=== PATIENT | female | born 2000 | race Caucasian/White ===

== ENCOUNTER 2025-03-05 10:11 | Observation (INO) | payer OTHER, SELFPAY ==
--- NOTE | 2025-03-05 10:22 | DI.US.S_ITS ---
PROCEDURE: US OB LIMITED INDICATIONS: high blood pressure OUTSIDE/PRIOR DATING DATA: Last menstrual period (LMP): 06/30/2024. LMP-based estimated date of delivery (HARPER): 04/06/2025. First dating scan (date and location): 09/09/2024. Estimated date of delivery (HARPER) from first dating scan: 04/06/2024. TECHNIQUE: Real-time scanning was performed of the fetus, with image documentation and biometric measurements. Endovaginal scanning: Not done. COMPARISON: [facility] Ultrasound, US, US OB > 14 WEEKS COMPLETE ANATOMY, 11/22/2024, 10:18. [facility], US, US OB < 14 WEEKS, 09/09/2024, 16:40. [facility], US, US OB LIMITED, 12/10/2024, 7:05. FINDINGS: General: A single live intrauterine gestation is present. Presentation: Vertex. Placenta: Placental position is posterior, without previa. Amniotic fluid index: 18.3 cm, normal range is 5-24 cm. Single deepest vertical pocket is 6.8 cm. heart rate: 163 beats per minute. Maternal cervical canal: Not evaluated biometrics: Biparietal diameter: 8.7 cm equals 35 weeks 0 days Head circumference: 30.5 cm equals 33 weeks 6 days Abdominal circumference: 30.6 cm equals 34 weeks 4 days Femur length: 6.4 cm equals 32 weeks 6 days Clinically estimated gestational age: 35 weeks 3 days Composite gestational age from present scan: 34 weeks 1 day Estimated weight and percentile: 2342 g, 16th percentile Other: The umbilical artery Doppler ratios measure 2.5, 2.4, and 2.1 IMPRESSION: No acute abnormality is identified. The head circumference and femur length are less than the 5th percentile for gestational age. Normal LIBBY. Umbilical cord Doppler ratios within normal limits. We strive to produce accurate, complete, and clear reports of imaging services. To assist us in improving patient care, this report was composed using standard report templates and voice recognition software. Therefore, it may contain abnormal punctuation, insertions and/or omissions. Occasional wrong-word or sound-alike substitutions may occur. Though we review the report and make efforts to correct it, we do recommend that the report be read carefully in proper context to recognize any text inaccuracies. Dictated by: Ger Walker M.D. on 03/05/2025 at 11:44 Approved by: Ger Walker M.D. on 03/05/2025 at 11:48
--- NOTE | 2025-03-05 10:58 | P.TNLD_ITS ---
Visit Information Visit Information Date of evaluation: 03/05/25 Primary OB Provider: Caprice Abraham On-call OB Provider: Caprice Abraham Reason for Evaluation: Yes other Comments/Additional reasons for admission: 24YO @ [id number] by LMP concordant with 10wks US referred from clinic for evaluation of elevated BP and headache. Seen in clinic this morning for concern for elevated home BsP. Has been having some headaches off and on since 02/22/25. They feel like her typical headaches across the front of her head and have resolved with normal interventions: time and/or Tylenol. Has been having mild GI upset with loose stools x 5 days. Feeling irregular, mild cramping in the evenings in the last few days. Lots of FM. She is experiencing pinpoint/localized RUQ pain that she feels extending into her back. No vision changes or increased edema. 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 Anxiety Depression Surgical History (Updated 03/05/25 @ 11:12 by Caprice Abraham CNM) History of breast lump/mass excision Family History (Updated 03/05/25 @ 11:13 by Caprice Abraham CNM) Mother Diabetes mellitus Depression Cancer Father Diabetes mellitus Exam Vital Signs (past 8 hours): see above Presentation: vertex Neuro General: patient alert, patient awake and patient oriented x3 Cognition: normal cognition Speech: speech normal DTR's: Rt Patellar: 1+ and Lt Patellar: 2+ Objective Imaging OB US >14wks Follow-up Growth: Radiologist's impression: COMPARISON: [facility] Ultrasound, US, US OB > 14 WEEKS COMPLETE ANATOMY, 11/22/2024, 10:18. [facility], US, US OB < 14 WEEKS, 09/09/2024, 16:40. [facility], US, US OB LIMITED, 12/10/2024, 7:05. FINDINGS: General: A single live intrauterine gestation is present. Presentation: Vertex. Placenta: Placental position is posterior, without previa. Amniotic fluid index: 18.3 cm, normal range is 5-24 cm. Single deepest vertical pocket is 6.8 cm. heart rate: 163 beats per minute. Maternal cervical canal: Not evaluated biometrics: Biparietal diameter: 8.7 cm equals 35 weeks 0 days Head circumference: 30.5 cm equals 33 weeks 6 days Abdominal circumference: 30.6 cm equals 34 weeks 4 days Femur length: 6.4 cm equals 32 weeks 6 days Clinically estimated gestational age: 35 weeks 3 days Composite gestational age from present scan: 34 weeks 1 day Estimated weight and percentile: 2342 g, 16th percentile Other: The umbilical artery Doppler ratios measure 2.5, 2.4, and 2.1 IMPRESSION: No acute abnormality is identified. The head circumference and femur length are less than the 5th percentile for gestational age. Normal LIBBY. Umbilical cord Doppler ratios within normal limits Labs 03/05/25 10:45 03/05/25 10:45 Evaluation Evaluation Baseline heart rate: 150 Variability: Moderate (11-25) monitor accelerations: Present Monitor Decelerations: Absent Contraction Frequency (minutes): 2 Uterine Contraction Intensity: Mild Category of Tracing: Reactive (LINE REPAIRER TOWER) Cervical dilation (cm): 0 Cervical effacement (%): 50 station: -3 Diagnosis, Plan/Disposition Final Diagnosis (1) Elevated blood pressure reading without diagnosis of hypertension: Status: Acute Plan/Disposition Plan: Discharge to home with routine precautions. Continue daily home BPs. Follow-up in clinic 03/09/25. OB Disposition: home
[2025-03-05 11:04] LABS: Add Manual Diff / Slide Review NO; Basophils Absolute Auto 0 /uL (0-100); Basophils Percent Auto 0.3 % (0-2); Eosinophils Absolute Auto 0 /uL (0-450); Eosinophils Percent Auto 0.4 % (2-4); Hematocrit 34.5 % (36-46); Hemoglobin 11.8 g/dL (12.0-16.0); Lymphocytes Absolute Auto 1700 /uL (1100-4500); Lymphocytes Percent Auto 14.6 % (25-40); Mean Corpuscular Hemoglobin 27.8 PG (26-34); Mean Corpuscular Volume 81.7 fL (80-100); Monocytes Absolute Auto 700 /uL (0-900); Neutrophils Absolute Auto 9000 /uL (1500-7000); Neutrophils Percent Auto 78.7 % (50-75); Platelet Count 308 X10^3/uL (150-400); Red Blood Cell Count 4.23 X10^6/uL (4.0-5.2); Red Cell Distribution Width 13.2 % (11.6-14.8); White Blood Cell Count 11.4 X10^3/uL (4.5-11.0)
[2025-03-05 11:17] LABS: Alanine Aminotransferase 23 IU/L (<35); Albumin 3.7 g/dL (3.5-5.0); Albumin Globulin Ratio 1.2 (1.0-2.8); Alkaline Phosphatase 96 U/L (38-126); Aspartate Aminotransferase 25 IU/L (14-36); BUN Creatinine Ratio 8.7 (6-22); Bilirubin Total 0.5 mg/dL (0.2-1.3); Blood Urea Nitrogen 4 mg/dL (7-17); Calcium 8.7 mg/dL (8.4-10.2); Carbon Dioxide 16 mmol/L (22-32); Chloride 107 mmol/L (98-107); Estimated Glomerular Filt Rate > 60 mL/min (>60); Globulin 3.1 g/dL (1.7-4.1); Glucose 91 mg/dL (70-99); HEMOLYSIS < 15 (0-50); Potassium 3.8 mmol/L (3.4-5.1); Sodium 134 mmol/L (137-145); Total Protein 6.8 g/dL (6.3-8.2); Uric Acid 3.8 mg/dL (2.5-6.2)
[2025-03-05 11:59] LABS: Protein (Total) Urine Random 8 mg/dL (0-12); Protein Creatinine Ratio Urine 0.08 GRAM/24H
[2025-03-05 12:45] LABS: Strep Grp B PCR NEG for Grp B Strep
== END 2025-03-05 12:15 | disposition home or self-care (01) ==
LOC: LABOR 10:16
PROVIDERS: Admitting Provider Nurse Practitioner Obstetrics & Gynecology; Referring Provider Nurse Practitioner Obstetrics & Gynecology; Visit Provider Nurse Practitioner Obstetrics & Gynecology
DX: O26.893 Other specified pregnancy related conditions, third trimester (principal); R03.0 Elevated blood-pressure reading, without diagnosis of hypertension; R51.9 Headache, unspecified; Z3A.35 35 weeks gestation of pregnancy
CPT/HCPCS: 59025; 76815; 80053; 84550; 85025; 87081; 87653; G0378; G0379

== ENCOUNTER 2025-04-01 05:21 | Inpatient (IN) | payer OTHER, SELFPAY ==
--- NOTE | 2025-04-01 05:32 | PM.OBHP.1 ---
OB HPI Date/Time Date of admission: 04/01/25 Date Patient Seen: 04/01/25 Time Patient Seen: 05:32 History of Present Condition Chief complaint: labor : 1 Para: 0 Estimated Date of Delivery: 04/06/25 Estimated Gestational Age (weeks): 39.2 Narrative: Jeninfer Lopez is a 24 year old female @ 39wks 5days by LMP concordant with 10wk US who presents for evaluation of labor. Contractions were mild and irregular before SROM at 0130 for copious clear fluid. Contractions then immediately became strong. Now breathing through strong contractions every 2-3 minutes. Continues to leak clear fluid with occasional spotting. +FM. Uncomplicated care with CNMs. Planning low intervention , open to NO2, IV narcotics and an epidural. is present and supportive. History of Present care: good care, initiated at week # (10), number of visits (9) and pounds weight gain (43) Dating criteria: LMP confirmed by 1st trimester US Ultrasounds: normal mid trimester US Obstetrical complications: none Medical complications: none Preadmission Labs Blood type: A (+) positive -: Antibody screen: negative, GBS status: negative, HBsAG: negative, HIV: negative and RPR/VDLR: negative -: Chlamydia screen: not detected and Gonorrhea screen: not detected -: Rubella: immune and Varicella: immune HCT: 34.5 HCAB: negative Cell-free DNA: Negative x3 1 hr GTT: 123 Evaluation Evaluation Baseline heart rate: 135 Variability: Moderate (11-25) monitor accelerations: Present Monitor Decelerations: Absent Contraction Frequency (minutes): 2 Uterine Contraction Intensity: Moderate Status: Category l Dilation (cm): 3 Effacement (%): 80 station: -2 [facility] Medical History 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 Anxiety Depression Surgical History History of breast lump/mass excision Family History Mother Diabetes mellitus Depression Cancer Father Diabetes mellitus Meds Home Medications and Allergies Allergies Allergy/AdvReac Type Severity Reaction Status Date / Time strawberry AdvReac Intermediate swell Verified 04/01/25 06:09 benzonatate (From Tessalon AdvReac Mild ITCHING Verified 04/01/25 06:27 Vivian) latex AdvReac Mild unknown Verified 04/01/25 06:09 Review of Systems Review of Systems ROS: Yes All systems reviewed with the patient and are negative except as otherwise documented OB Exam Vital signs Blood Pressure: 132/86 Pulse Rate: 111 Respiratory Rate: 16 Temperature: 98.4 F Resp Effort & Inspection: normal respiratory effort and able to speak in complete sentences Auscultation: clear to auscultation bilaterally Cardio Rate: regular rate Rhythm: regular rhythm Heart Sounds: S1 normal and S2 normal Presentation: vertex Amniotic Fluid: clear (gross ROM) Objective Labs 04/01/25 05:56 Assessment and Plan Assessment and Plan Assessment and Plan narrative: A: Term nullipara SROM x 4 hours without sx of infection Antibiotics not indicated Cat I FHR P: Admit, routine labor orders. Expectant management of labor. Epidural when requested. Reassess in 4 hours or sooner, PRN. Time-Based Coding :: [TOTAL MINUTES] spent with patient and on the chart (including review of chart, obtaining history, exam, reviewing outside data, placing orders, documenting exam and treatment plan, and counseling patient) on [DATE].
[2025-04-01 06:11] LABS: Add Manual Diff / Slide Review NO; Basophils Absolute Auto 100 /uL (0-100); Basophils Percent Auto 0.8 % (0-2); Eosinophils Absolute Auto 100 /uL (0-450); Eosinophils Percent Auto 0.4 % (2-4); Hematocrit 34.7 % (36-46); Hemoglobin 11.7 g/dL (12.0-16.0); Lymphocytes Absolute Auto 2700 /uL (1100-4500); Lymphocytes Percent Auto 18.6 % (25-40); Mean Corpuscular HGB Conc 33.6 % (30-36); Mean Corpuscular Hemoglobin 27.4 PG (26-34); Mean Corpuscular Volume 81.4 fL (80-100); Monocytes Absolute Auto 900 /uL (0-900); Monocytes Percent Auto 6.3 % (3-14); Neutrophils Absolute Auto 10600 /uL (1500-7000); Neutrophils Percent Auto 73.9 % (50-75); Platelet Count 342 X10^3/uL (150-400); Red Blood Cell Count 4.27 X10^6/uL (4.0-5.2); Red Cell Distribution Width 14.8 % (11.6-14.8); White Blood Cell Count 14.4 X10^3/uL (4.5-11.0)
[2025-04-01 06:20] VITALS: BP 132/86; PULSE 111; RESP 16; TEMP 36.9
[2025-04-01] MEDS: LACTATED RINGERS 1,000 ML 100 ML IV ×3 (09:45→13:46)
--- NOTE | 2025-04-01 09:48 | PM.OBPNLAB ---
Date/Time Date Patient Seen: 04/01/25 Time Patient Seen: 09:40 Pain Control Pain control: other (Requesting an epidural) Comments: S: Jennifer presented as tearful. Contractions are increasing in intensity and she is breathing well through them. She is struggling to cope without pain management and requests an epidural. Vitals: BP: 110/65 HR: 100 T: 98.4 temporal SpO2: 98% RA Pelvic Exam Dilation (cm): 5 Effacement (%): 90 station: -1 Amniotic membrane status: Leaking (clear) Contractions Contractions on admission: regular Monitor mode: External Contraction frequency (min): 2 (2-3) Contraction duration (min): 1 (30 seconds) Contraction pattern: Regular Contraction intensity: Moderate Status Heart Rate Baseline: 140 Comments: intermittent auscultation Assessment and Plan Assessment: active labor Plan: continuous present management Comments: Assessment: Term nullipara Active labor SROM x 8 hrs without sx of infection FHR Reassuring by intermittent auscultation Plan: Continue expectant management of labor Epidural now with continuous EFM Reassess in 4 hours or sooner, PRN
--- NOTE | 2025-04-01 10:33 | PM.AN.REGBLK ---
Regional Block Pre-procedure PMH/ROS narrative: active labor PSH/Anesthesia history narrative: no previous regional anesthesia no history of reactions to anesthesia ASA Class: II Labs: Hct 34.7 % (36-46) L 04/01/25 05:56 Plt Count 342 X10^3/uL (150-400) 04/01/25 05:56 Medications: Current Medications Generic Name Dose Route Start Last Admin Trade Name Freq PRN Reason Stop Dose Admin Calcium Carbonate 1,000 mg 04/01/25 05:43 Calcium Carbonate 500 Mg Tab PO Q2HR PRN Dyspepsia Carboprost Tromethamine 250 mcg 04/01/25 05:32 Carboprost 250 Mcg/Ml Ampul IM Q90M PRN Bleeding Fentanyl 100 mcg 04/01/25 05:38 Fentanyl 100 Mcg/2 Ml Inj IV Q1H PRN Pain, Severe (7-10) Oxytocin/Lactated Ringer's 30 unit in 500 mls @ 200 mls/hr 04/01/25 05:32 Oxytocin Premix IV CONT PRN Bleeding Protocol Tranexamic Acid 1,000 mg/ 100 mls @ 600 mls/hr 04/01/25 05:32 Sodium Chloride IV NOW PRN Bleeding Oxytocin/Lactated Ringer's 30 unit in 500 mls @ 2 mls/hr 04/01/25 05:45 Oxytocin Premix IV TITRATE BYRON Protocol 2 MILLIUNIT/MIN Lactated Ringer's 1,000 mls @ 100 mls/hr 04/01/25 05:45 Lactated Ringers IV 04/01/25 15:44 CONT BYRON Lidocaine HCl 20 ml 04/01/25 05:32 Lidocaine 1% 20 Ml INJ INTRA-OP PRN Post Delivery Methylergonovine Maleate 0.2 mg 04/01/25 05:32 Methylergonovine 0.2 Mg Tablet PO Q6HR PRN Heavy Bleeding Methylergonovine Maleate 0.2 mg 04/01/25 05:32 Methylergonovine 0.2 Mg/Ml Vial IM NOW PRN Bleeding Mineral Oil 30 ml 04/01/25 05:32 Mineral Oil 30 Ml Udc TOP PRN PRN Version Misoprostol 800 mcg 04/01/25 05:32 Misoprostol 200 Mcg Tablet DE NOW PRN Bleeding Misoprostol 400 mcg 04/01/25 05:32 Misoprostol 200 Mcg Tablet SL NOW PRN Bleeding Naloxone HCl 0.2 mg 04/01/25 05:32 Naloxone 0.4 Mg/Ml Vial IV Q2MIN PRN Opiate Reversal Ondansetron HCl 4 mg 04/01/25 05:43 Ondansetron 4 Mg/2 Ml Inj IV Q4HR PRN Nausea And Vomiting Oxytocin 10 unit 04/01/25 05:32 Oxytocin 10 Unit/Ml Vial IM NOW PRN Bleeding Allergies: Allergies Allergy/AdvReac Type Severity Reaction Status Date / Time strawberry AdvReac Intermediate swell Verified 04/01/25 06:09 benzonatate (From Tessalon AdvReac Mild ITCHING Verified 04/01/25 06:27 Vivian) latex AdvReac Mild unknown Verified 04/01/25 06:09 --: pt drape and prep with sterile technique v/s/s l3 l4 interspace idenitfied, off midline to the left. known scoliosis. localized with lido 1% 3cc in 2 locations. tuohy introduced with CECI. 27 g pencil point needle with CSF present. removed SAB needle. threaded catheter. aspirated and was able to aspirate approx 0.25 cc blood. informed patient of inadvertant venous catheter. removed. new kit opened. drape and prep with sterile technique, VSS. l2 l3 interspace identified. localized with 1% 2 cc in 1 space. tuphy introduced with CECI. no SAB. threaded catheter. aspiration now negative. Procedure Insertion date: 04/01/25 Insertion time: 10:10 Prep/Local: betadine x3 (chlorprep) and 1% lidocaine (3 cc) Interspace: l2 l3 Patient position: sitting Needle: 18 gauge Annita Loss of resistance with: saline CECI at (cm): 5 Catheter placed at SKIN (cm): 12 Sensory level: t10 Insertion: No CSF, No Blood, No Paresthesia with insertion, No Paresthesia with injection and No Test dose reaction Initial Medications TEST DOSE time: 16:12 TEST DOSE: 1.5% lidocaine with epinephrine 1:200k (mL): 2 BOLUS DOSE time: 10:15 BOLUS DOSE (mL): 4 BOLUS DOSE med: other (infusate) Infusion INFUSION: 0.125% bupivacaine and with fentanyl 2 mcg/mL Initial rate (mL/hr): 10 Subsequent interventions: 1050 RN called for symptomatic (nausea) hypotension, baby HR stable. pt on left side with fluid bolus. ephedrine 10 mg IVP given by JENNIFER PIPE FITTINGS MOLDER. pt states feeling better within 2 minutes. SBP 115. decreased epidural dump to 8mL/hr. pt states she feels 0/10 pain. Post-procedure Anesthesia date START: 04/01/25 Anesthesia time START: 09:50 Anesthesia date END: 04/01/25 Anesthesia time END: 17:43 Post-procedure Anesthesia Assessment: Yes CV function: HR/BP stable, Yes Resp function: RR/sat/airway adequate, Yes Post-op hydration adequate, Yes Pain control adequate, Yes Nausea & vomiting absent, Yes Temperature > 36 C, Yes Mental status appropriate and Yes Anesthesia complications
[2025-04-01] MEDS: ONDANSETRON 4 MG/2 ML INJ IV (11:05)
[2025-04-01] MEDS: ePHEDrine 50 MG/ML VIAL 10 MG IV ×2 (11:40→13:10)
[2025-04-01] MEDS: OXYTOCIN PREMIX 30 UNIT/500 ML PLAST..BAG IV (13:43)
--- NOTE | 2025-04-01 13:44 | PM.OBPNLAB ---
Date/Time Date Patient Seen: 04/01/25 Time Patient Seen: 13:30 Pain Control Pain control: epidural Comments: Subjective: Alen is tolerating contractions well with epidural anesthesia. She is comfortable and was able to rest. She had an episode of hypotension, which was resolved with ephedrine. Vitals: BP: 111/66 HR: 116 SpO2: 100% T. 36.9 C Pelvic Exam Dilation (cm): 5 Effacement (%): 90 station: -1 Amniotic membrane status: Leaking (clear) Contractions Monitor mode: External Contraction frequency (min): 2 (2-3) Contraction duration (min): 1 Contraction pattern: Regular Contraction intensity: Moderate Status status: Category l Heart Rate Baseline: 140 Monitor Accelerations: Present Monitor Decelerations: Absent Monitor Variability: Moderate Assessment and Plan Assessment: active labor Plan: begin patient augmentation Comments: Assessment: term nullipara hypotensive episode s/p epidural placement active labor minimal change in cervical dilation Cat I FHR Plan: Recommend pitocin augmentation and Jennifer agrees. RN to start, per protocol. Monitor status with cEFM. Continue to follow anesthesia orders to maintain normotensive. Reassess in 4 hours or sooner, PRN.
--- NOTE | 2025-04-01 18:06 | PM.OBPRVD ---
Labor & Delivery Delivery date: 04/01/25 Delivery Time: 17:20 Intrapartal Events: None Cervical ripening method: none Induction method: per pitocin protocol Delivery augmentation: pitocin Delivery monitor: external FHT Route of delivery: Episiotomy description: None L&D Laceration Description: Perineal - 2nd Degree Delivery repair: chromic Quantitative Blood Loss: 200 Anesthesia Type: Epidural Narrative: Venus reported feeling constant intense rectal pressure. She was found to be complete/100%/0. At 1622, she began pushing for a relatively short second stage. Venus became tearful with pushing but pushed well with encouragement and coaching. FHR had frequent variable decelerations throughout second stage. NSVB of a vigorous baby boy at 1720. Apgars 9/9. No nuchal cord present. Shoulders delivered easily without additional maneuvers. Fetus immediately placed on maternal abdomen for drying and skin-to skin. Pitocin was started for AMTSL. After cessation of pulsation, cord clamped by STANLEY and cut by Bryce JEROME. At 1734, placenta delivered easily with gentle cord traction and a single maternal push. Placenta appeared intact with a three-vessel cord. Fundus immediately firm with scant bleeding. Vaginal exam revealed a second-degree perineal tear, which was repaired by 3-0 chromic in the usual fashion. Epidural anesthesia was adequate throught the repair. QBL 200mL. Mother and baby stable as I left the room. STANLEY Harvey RN Baby 1: Infant gender: Male Presentation: vertex Position: Left Occiput Anterior Placenta delivery description: Spontaneous and Normal Configuration Cord Vessel Description: 3 Vessels score (1 min): 9 score (5 min): 9 weight: 3.184 kg Plan for aftercare: Routine care
[2025-04-01] MEDS: WITCH HAZEL/GLYCERIN PADS 1 EACH TOP (18:29)
[2025-04-01] MEDS: KETOROLAC 30 MG/ML VIAL IV (18:29)
[2025-04-01] MEDS: DERMOPLAST SPRAY 20% 60 ML 1 SPRAY TOP (18:30)
[2025-04-02] MEDS: IBUPROFEN 600 MG TABLET PO ×3 (00:21→13:21)
[2025-04-02] MEDS: ACETAMINOPHEN 325 MG TABLET 650 MG PO ×3 (00:21→13:20)
--- NOTE | 2025-04-02 11:10 | PM.OBDS.1 ---
Discharge Providers Provider Date of admission: 04/01/25 05:21 Discharge Date: 04/02/25 Primary care physician: SUPRIYA Sullivan Consults: 04/02/25 18:00 Consult to Joy Loading Machine Operator Routine Comment: Discharge provider: Caprice Abraham CNM Summary Hospital Course Date Patient Seen: 04/02/25 Time Patient Seen: 11:12 Diagnoses: O70.1 Hospital Course: Spontaneous labor progressed to NSVB with a 2nd degree perineal laceration. Healthy baby boy. PPDa: Stable s/p NSVB. Voiding, ambulating and independently. Tolerating a general diet. Pain is well controlled with PO medication. Vaginal bleeding is light, without clots. She and her are eager for discharge to home with their son. Peripartum Data Infant Delivery Method: Natural Vaginal Laceration Description: Perineal - 2nd Degree Episiotomy description: None Procedures: O70.1 complications: none [place] 1: Gender: Male Disposition of : home Discharge Diagnosis (1) Del w/ 2 deg lac-unsp: Status: Acute Problem Details: Routine course Status at Discharge Cognitive/behavioral status at discharge: oriented and calm Functional status at discharge: independent ambulation Overall status at discharge: patient is progressing back to baseline Time Spent with Patient Time attestation: Total time spent providing and/or coordinating discharge services: Time spent: Less than 30 minutes Objective Labs 04/01/25 05:56 Exam Vital Signs (past 8 hours): BP 122/76, HR 98bpm, RR 16, T 97.9F Temporal, SPo2 98% on RA Const General: cooperative, healthy appearing and comfortable Nutritional Appearance: average body habitus and well nourished Other: Fundus firm @ U-1, lochia scant without clots, perineum well approximated with mild edema Psych Appearance: grossly normal and well kempt Mood: congruent mood Affect: normal affect Discharge Plan Discharge Plan Patient Disposition: Home Discharge orders & Medications Prescriptions: New ibuprofen 600 mg Tablet 600 mg PO Q6HR PRN (Reason: Pain, Mild (1-3)) 14 Days Qty: 60 0RF Follow up/Referrals: Caprice Abraham CNM [[employer] Tech, DIPPING MACHINE OPERATOR] Referral Note: Follow-up in 2 weeks and 6 weeks . Appointments are scheduled and in your email. Diet/Activity/Treatments Diet: Diet as Tolerated and Regular Activity: bed rest x 2 week, no heavy lfting (>10lb) x 4 weeks, pelvic rest x 6 weeks Skin/Wound/Dressing Care Report to your healthcare provider any signs of infection, such as:: chills, fever, increased pain, unusual drainage and unusual redness Visit Report/Discharge Packet Instructions: DI for Depression Stand Alone Forms: Patient Portal/API, Stroke Signs & Symptoms Discharge Data Attending Provider: Caprice Abraham Admbean Date/Time: 04/01/25 05:21
[2025-04-02] MEDS: DOCUSATE 100 MG CAPSULE PO (13:22)
[2025-04-02 14:33] VITALS: BP 122/76; PULSE 98; RESP 16; TEMP 36.6
== END 2025-04-02 16:15 | disposition home or self-care (01) | DRG 807 ==
PROVIDERS: Admitting Provider Nurse Practitioner Obstetrics & Gynecology; Referring Provider Nurse Practitioner Obstetrics & Gynecology; Visit Provider Nurse Practitioner Obstetrics & Gynecology
DX: O70.1 Second degree perineal laceration during delivery (principal); Z37.0 Single live birth; Z3A.39 39 weeks gestation of pregnancy; O76 Abnormality in fetal heart rate and rhythm complicating labor and delivery
CPT/HCPCS: 36415; 59050; 85025; 86850; 86900; 86901; G0378; G0379; J1885; J2405; J2590